=== PATIENT | male | born 1970 | race Caucasian/White ===

== ENCOUNTER → 2017-08-10 | Outpatient (CLI) | payer BC ==
[~2017-08-10] MED LIST: ASPIRIN CHILDRE81 MG PO; ASPIRIN324 MG PO; BACITRACIN 500U30 GM OPH; CHOLESTEROL MED; FLEXERIL10 MG PO; HYDROCODONE BIT1 T11 PO; LIPITOR10 MG; LIPITOR20 MG PO; LISINOPRIL2.5 MG PO; LOPRESSOR25 MG PO; PLAVIX75 MG PO; PRAVACHOL40 MG PO; PREVACID30 MG PO; PRILOSEC20 M1 PO; PRINIVIL2.5 MG PO; TOPROL XL100 MG PO; TOPROL XL25 MG; VICODIN 500 MG-1 TAB PO; ZITHROMAX Z PA250 MG PO; ZOCOR20 MG PO
[2017-08-10 08:08] LABS: CHOLESTEROL 96 mg/dL (<200); HDL CHOLESTEROL 28 mg/dl (40-60); LDL CHOLESTEROL 55 mg/dL (9-159); SGOT/AST 30 IU/L (3-35); SGPT/ALT 43 U/L (12-78); TRIGLYCERIDES 65 mg/dl (<150); VLDL CHOLESTEROL 13 mg/dL (6-40)
[2017-08-13 00:07] LABS: TESTOSTERONE FREE, (DIRECT) 31.6 pg/mL (6.8-21.5)
== END | disposition home or self-care (01) ==
LOC: LAB 06:55
PROVIDERS: Internal Medicine Interventional Cardiology
DX: E78.2 Mixed hyperlipidemia (principal); E29.1 Testicular hypofunction

== ENCOUNTER → 2017-11-04 | Outpatient (CLI) | payer BC | END | disposition home or self-care (01) | LOC: US 13:21 | DX: N50.3 Cyst of epididymis (principal); N43.2 Other hydrocele ==

== ENCOUNTER → 2018-07-21 | Outpatient (CLI) | payer BC ==
[2018-07-21 09:42] LABS: BUN 18 mg/dl (7-24); CHLORIDE 102 mmol/L (98-107); CHOLESTEROL 127 mg/dL (<200); HDL CHOLESTEROL 26 mg/dl (40-60); LDL CHOLESTEROL 73 mg/dL (9-159); POTASSIUM 4.1 mmol/L (3.5-5.1); SGOT/AST 63 IU/L (3-35); SGPT/ALT 94 U/L (12-78); SODIUM 138 mmol/L (136-145); TRIGLYCERIDES 139 mg/dl (<150); VLDL CHOLESTEROL 28 mg/dL (6-40)
== END | disposition home or self-care (01) ==
LOC: LAB 08:39
PROVIDERS: Internal Medicine Interventional Cardiology
DX: I25.10 Atherosclerotic heart disease of native coronary artery without angina pectoris (principal); I10 Essential (primary) hypertension; E78.5 Hyperlipidemia, unspecified; I25.2 Old myocardial infarction; Z95.5 Presence of coronary angioplasty implant and graft

== ENCOUNTER → 2018-10-31 | Outpatient (CLI) | payer BC ==
[2018-10-31 08:23] LABS: CHOLESTEROL 80 mg/dL (<200); HDL CHOLESTEROL 27 mg/dl (40-60); LDL CHOLESTEROL 34 mg/dL (9-159); SGOT/AST 37 IU/L (3-35); SGPT/ALT 53 U/L (12-78); TRIGLYCERIDES 95 mg/dl (<150); VLDL CHOLESTEROL 19 mg/dL (6-40)
== END | disposition home or self-care (01) ==
LOC: LAB 07:37
PROVIDERS: Internal Medicine Interventional Cardiology
DX: E78.2 Mixed hyperlipidemia (principal)

== ENCOUNTER → 2018-11-24 | Outpatient (CLI) | payer BC ==
--- NOTE | 2018-11-24 10:00 | NUR ---
INFORMED SIGNED CONSENT OBTAIND FOR STANDARD GXT WITH DR BURNS. RESTING EKG NSR HR 77 BP 130/70 IN SUPINE POSITON. STANDING HR 90 BP 122/62. PT COMPLETED 7:00 OF A LINDSAY PROTOCOL WITH PT COMPLETING STAGE ONE MINUTE OF STAGE III AT 3.4 MPH AND A 14% GRADE. MULTIFOCAL PVC'S AND BIGEMNY NOTED. PT REACHED A PEAK HR OF 152 WHICH REPRESENTS 89% OF PREDICTED MAXMIMUM AND A PEAK BP OF 158/70. PT DENIES ANY CHEST PAIN. TEST TERMINATED DUE TO FATIGUE AND SOB. LAST RECOVERY HR OF 92 BP 134/64. PT IN STABLE CONDITION, HOME TO SELF.
== END | disposition home or self-care (01) ==
LOC: CARD 02:12
DX: I25.10 Atherosclerotic heart disease of native coronary artery without angina pectoris (principal)

== ENCOUNTER → 2019-06-20 | Outpatient (CLI) | payer BC ==
[2019-06-20 09:41] LABS: BASO # 0.1 10*3/uL (0.0-0.1); BASO % 0.9 % (0.0-1.0); EOS # 0.2 10*3/uL (0.0-0.4); EOS % 2.5 % (1.0-4.0); HEMATOCRIT 45.2 % (42.0-52.0); HEMOGLOBIN 15.4 g/dl (14.0-18.0); LYMPH # 3.4 10*3/uL (1.3-4.4); LYMPH % 35.3 % (27.0-41.0); MEAN CELL VOLUME 92.6 fl (80.0-94.0); MEAN CORPUSCULAR HGB 31.6 pg (27.0-31.0); MEAN CORPUSCULAR HGB CONC 34.1 g/dl (33.0-37.0); MONO # 0.8 10*3/uL (0.1-1.0); MONO % 8.3 % (3.0-9.0); NEUT # 5.1 10*3/uL (2.3-7.9); NEUT % 52.5 % (47.0-73.0); PLATELET COUNT AUTOMATED 238 10*3/uL (130-400); RED BLOOD COUNT 4.88 10*6/uL (4.50-5.90); WHITE BLOOD COUNT 9.6 10*3/uL (4.8-10.8)
[2019-06-20 10:03] LABS: ALBUMIN 4.1 gm/dl (3.1-4.5); ALKALINE PHOSPHATASE 79 U/L (45-117); BUN 21 mg/dl (7-24); CHLORIDE 106 mmol/L (98-107); CHOLESTEROL 114 mg/dL (<200); CREATININE 0.99 mg/dL (0.70-1.30); FREE T4 0.88 ng/dl (0.76-1.46); HDL CHOLESTEROL 33 mg/dl (40-60); LDL CHOLESTEROL 54 mg/dL (9-159); POTASSIUM 3.9 mmol/L (3.5-5.1); SGOT/AST 32 IU/L (3-35); SGPT/ALT 66 U/L (12-78); SODIUM 140 mmol/L (136-145); TOTAL PROTEIN 7.5 gm/dL (6.4-8.2); TRIGLYCERIDES 133 mg/dl (<150); VLDL CHOLESTEROL 27 mg/dL (6-40)
== END | disposition home or self-care (01) ==
LOC: LAB 09:12
PROVIDERS: Internal Medicine
DX: M17.0 Bilateral primary osteoarthritis of knee (principal); E78.5 Hyperlipidemia, unspecified; I10 Essential (primary) hypertension; M25.461 Effusion, right knee; M25.762 Osteophyte, left knee; M25.761 Osteophyte, right knee

== ENCOUNTER → 2019-08-18 | Outpatient (CLI) | payer BC | END | disposition home or self-care (01) | LOC: RAD 13:53 | DX: M17.11 Unilateral primary osteoarthritis, right knee (principal) ==

== ENCOUNTER → 2019-11-10 | Outpatient (CLI) | payer BC | END | disposition home or self-care (01) | LOC: ORTHO 00:54 | DX: M17.0 Bilateral primary osteoarthritis of knee (principal); M25.461 Effusion, right knee; M25.462 Effusion, left knee ==

== ENCOUNTER → 2020-12-05 | Outpatient (CLI) | payer BC ==
[~2020-12-05] MED LIST changes: +LISINOPRIL10 M1 PO; -LOPRESSOR25 MG PO; +LOPRESSOR50 M1 PO; +Motrin,Rufen800 MG PO; +NORCO PO; -PRINIVIL2.5 MG PO; +VITAMIN D3125 MC1 PO; +VITAMIN E400 UNI3 PO
== END | disposition home or self-care (01) ==
LOC: CARD 00:12
PROVIDERS: ATTEND Internal Medicine
DX: Z95.5 Presence of coronary angioplasty implant and graft (principal)

== ENCOUNTER → 2021-03-24 | Outpatient (CLI) | payer BC ==
[2021-03-24 09:21] LABS: BASO # 0.1 10*3/uL (0.0-0.1); BASO % 0.7 % (0.0-1.0); EOS # 0.2 10*3/uL (0.0-0.4); EOS % 3.3 % (1.0-4.0); HEMATOCRIT 43.5 % (42.0-52.0); LYMPH % 43.2 % (27.0-41.0); MEAN CELL VOLUME 89.3 fl (80.0-94.0); MEAN CORPUSCULAR HGB 30.4 pg (27.0-31.0); MEAN PLATELET VOLUME 10.6 fl (9.6-12.3); MONO # 0.6 10*3/uL (0.1-1.0); MONO % 8.2 % (3.0-9.0); NEUT # 3.1 10*3/uL (2.3-7.9); PLATELET COUNT AUTOMATED 227 10*3/uL (130-400); RED BLOOD COUNT 4.87 10*6/uL (4.50-5.90); RED CELL DISTRI WIDTH 12.9 % (0-14.5)
[2021-03-24 09:43] LABS: ALBUMIN 3.6 gm/dl (3.1-4.5); BUN 18 mg/dl (7-24); CHLORIDE 108 mmol/L (98-107); CHOLESTEROL 114 mg/dL (<200); CREATININE 0.93 mg/dL (0.70-1.30); LDL CHOLESTEROL 55 mg/dL (9-159); POTASSIUM 3.8 mmol/L (3.5-5.1); SGOT/AST 34 IU/L (3-35); SGPT/ALT 73 U/L (12-78); SODIUM 140 mmol/L (136-145); TOTAL PROTEIN 7.3 gm/dL (6.4-8.2); TRIGLYCERIDES 164 mg/dl (<150)
[2021-03-24 09:49] LABS: ALKALINE PHOSPHATASE 91 U/L (45-117); FREE T4 0.84 ng/dl (0.76-1.46)
== END | disposition home or self-care (01) ==
LOC: LAB 08:56
PROVIDERS: ATTEND Internal Medicine
DX: M77.31 Calcaneal spur, right foot (principal); I10 Essential (primary) hypertension; M79.81 Nontraumatic hematoma of soft tissue

== ENCOUNTER 2021-09-02 13:39 | Emergency (ER) | payer BC ==
[~2021-09-02] VITALS: Ht 175.2 cm; Wt 147.0 kg
== END 2021-09-02 17:49 | disposition home or self-care (01) ==
LOC: ED 13:39
DX: U07.1 COVID-19 (principal); J12.82 Pneumonia due to coronavirus disease 2019; Z79.899 Other long term (current) drug therapy; Z79.82 Long term (current) use of aspirin

== ENCOUNTER → 2021-10-30 | Outpatient (CLI) | payer BC | END | disposition home or self-care (01) | LOC: US 07:30 | PROVIDERS: ATTEND Internal Medicine | DX: K76.0 Fatty (change of) liver, not elsewhere classified (principal); R10.9 Unspecified abdominal pain; Z87.442 Personal history of urinary calculi ==

== ENCOUNTER → 2021-12-31 | Outpatient (CLI) | payer BC ==
[2021-12-31 08:59] LABS: BASO # 0.1 10*3/uL (0.0-0.1); BASO % 0.6 % (0.0-1.0); EOS # 0.2 10*3/uL (0.0-0.4); EOS % 2.2 % (1.0-4.0); HEMATOCRIT 44.6 % (42.0-52.0); LYMPH # 3.3 10*3/uL (1.3-4.4); LYMPH % 38.6 % (27.0-41.0); MEAN CORPUSCULAR HGB 30.4 pg (27.0-31.0); MEAN CORPUSCULAR HGB CONC 33.4 g/dl (33.0-37.0); MEAN PLATELET VOLUME 10.1 fl (9.6-12.3); MONO # 0.6 10*3/uL (0.1-1.0); MONO % 6.5 % (3.0-9.0); NEUT # 4.4 10*3/uL (2.3-7.9); NEUT % 51.6 % (47.0-73.0); PLATELET COUNT AUTOMATED 246 10*3/uL (130-400); RED CELL DISTRI WIDTH 12.6 % (0-14.5); WHITE BLOOD COUNT 8.5 10*3/uL (4.8-10.8)
[2021-12-31 09:17] LABS: ALKALINE PHOSPHATASE 112 U/L (45-117); BUN 18 mg/dl (7-24); CHLORIDE 105 mmol/L (98-107); CHOLESTEROL 121 mg/dL (<200); CREATININE 0.92 mg/dL (0.70-1.30); FREE T4 0.98 ng/dl (0.76-1.46); LDL CHOLESTEROL 59 mg/dL (9-159); POTASSIUM 4.4 mmol/L (3.5-5.1); SGOT/AST 29 IU/L (3-35); SGPT/ALT 72 U/L (12-78); SODIUM 140 mmol/L (136-145); TOTAL PROTEIN 7.2 gm/dL (6.4-8.2); TRIGLYCERIDES 143 mg/dl (<150)
[2022-01-02 11:08] LABS: TESTOSTERONE FREE, (DIRECT) 3.3 pg/mL (7.2-24.0)
[2022-01-06 14:06] LABS: FREE PSA 0.206 ng/mL (.)
== END | disposition home or self-care (01) ==
LOC: LAB 08:43
PROVIDERS: ATTEND Internal Medicine
DX: Z12.5 Encounter for screening for malignant neoplasm of prostate (principal); I10 Essential (primary) hypertension; E78.5 Hyperlipidemia, unspecified; E55.9 Vitamin D deficiency, unspecified

== ENCOUNTER → 2022-05-30 | Outpatient (CLI) | payer BC ==
[2022-05-30 15:12] LABS: BUN 11 mg/dl (7-24); CHLORIDE 107 mmol/L (98-107); CREATININE 0.97 mg/dL (0.70-1.30); POTASSIUM 3.7 mmol/L (3.5-5.1); SODIUM 139 mmol/L (136-145)
== END | disposition home or self-care (01) ==
LOC: LAB 14:44
PROVIDERS: ATTEND Internal Medicine
DX: U07.1 COVID-19 (principal)

== ENCOUNTER → 2022-11-27 | Outpatient (CLI) | payer BC ==
[~2022-11-27] MED LIST changes: +FISH OIL 1,2001 EACH PO; +GALZIN50 MG PO; +JARDIANCE25 MG PO; +METFORMIN XR500 MG PO; +TRULICITY4.5 MG/0.5 SQ
[2022-11-27 09:04] LABS: BASO # 0.1 10*3/uL (0.0-0.1); BASO % 0.7 % (0.0-1.0); EOS # 0.2 10*3/uL (0.0-0.4); EOS % 2.5 % (1.0-4.0); HEMATOCRIT 51.3 % (42.0-52.0); LYMPH # 2.7 10*3/uL (1.3-4.4); LYMPH % 31.1 % (27.0-41.0); MEAN CORPUSCULAR HGB 29.3 pg (27.0-31.0); MEAN CORPUSCULAR HGB CONC 33.3 g/dl (33.0-37.0); MEAN PLATELET VOLUME 9.8 fl (9.6-12.3); MONO # 0.6 10*3/uL (0.1-1.0); MONO % 7.3 % (3.0-9.0); NEUT # 5.1 10*3/uL (2.3-7.9); NEUT % 58.2 % (47.0-73.0); PLATELET COUNT AUTOMATED 316 10*3/uL (130-400); RED BLOOD COUNT 5.83 10*6/uL (4.50-5.90); RED CELL DISTRI WIDTH 13.4 % (0-14.5); WHITE BLOOD COUNT 8.7 10*3/uL (4.8-10.8)
[2022-11-27 09:57] LABS: ALKALINE PHOSPHATASE 80 U/L (46-116); BUN 12 mg/dl (9-23); CHLORIDE 105 mmol/L (98-107); CHOLESTEROL 83 mg/dL (<200); FREE T4 1.08 ng/dl (0.89-1.76); LDL CHOLESTEROL 38 mg/dL (9-159); POTASSIUM 4.2 mmol/L (3.4-5.1); SGPT/ALT 93 U/L (10-49); THYROID STIM HORMONE (HS) 1.725 uIU/ml (0.550-4.780); TOTAL PROTEIN 7.5 gm/dL (6.0-8.0); TRIGLYCERIDES 77 mg/dl (<150)
[2022-12-03 01:06] LABS: TESTOSTERONE FREE, (DIRECT) 2.1 pg/mL (7.2-24.0)
== END | disposition home or self-care (01) ==
LOC: CARD 01:43 → LAB 01:43 → CARD 13:00
PROVIDERS: ATTEND Internal Medicine
DX: I25.10 Atherosclerotic heart disease of native coronary artery without angina pectoris (principal); E11.69 Type 2 diabetes mellitus with other specified complication; K76.0 Fatty (change of) liver, not elsewhere classified; E78.2 Mixed hyperlipidemia; E55.9 Vitamin D deficiency, unspecified

== ENCOUNTER → 2024-04-03 | Outpatient (CLI) | payer BC ==
[2024-04-03 08:42] LABS: BASO # 0.1 10*3/uL (0.0-0.1); BASO % 0.9 % (0.0-1.0); EOS # 0.2 10*3/uL (0.0-0.4); HEMATOCRIT 48.9 % (42.0-52.0); LYMPH # 2.9 10*3/uL (1.3-4.4); LYMPH % 38.2 % (27.0-41.0); MEAN CELL VOLUME 89.9 fl (80.0-94.0); MEAN CORPUSCULAR HGB 29.2 pg (27.0-31.0); MEAN CORPUSCULAR HGB CONC 32.5 g/dl (33.0-37.0); MONO # 0.6 10*3/uL (0.1-1.0); MONO % 8.3 % (3.0-9.0); NEUT # 3.8 10*3/uL (2.3-7.9); NEUT % 49.2 % (47.0-73.0); PLATELET COUNT AUTOMATED 241 10*3/uL (130-400); RED BLOOD COUNT 5.44 10*6/uL (4.50-5.90); RED CELL DISTRI WIDTH 14.6 % (0-14.5); WHITE BLOOD COUNT 7.7 10*3/uL (4.8-10.8)
[2024-04-03 09:46] LABS: ALKALINE PHOSPHATASE 86 U/L (46-116); BUN 8 mg/dl (9-23); CHLORIDE 105 mmol/L (98-107); CHOLESTEROL 81 mg/dL (<200); FREE T4 0.82 ng/dl (0.89-1.76); LDL CHOLESTEROL 26 mg/dL (9-159); POTASSIUM 3.8 mmol/L (3.4-5.1); SGPT/ALT 53 U/L (5-49); TRIGLYCERIDES 164 mg/dl (<150)
== END | disposition home or self-care (01) ==
LOC: LAB 08:22
PROVIDERS: ATTEND Internal Medicine
DX: Z12.5 Encounter for screening for malignant neoplasm of prostate (principal); E78.2 Mixed hyperlipidemia; E11.9 Type 2 diabetes mellitus without complications; I10 Essential (primary) hypertension; I25.10 Atherosclerotic heart disease of native coronary artery without angina pectoris

== ENCOUNTER → 2024-11-01 | Outpatient (CLI) | payer BC | END | disposition home or self-care (01) | LOC: LAB 12:23 | PROVIDERS: ATTEND Internal Medicine Nephrology | DX: B34.9 Viral infection, unspecified (principal); Z20.822 Contact with and (suspected) exposure to COVID-19 ==

== ENCOUNTER 2024-11-08 11:42 | Emergency (ER) | payer BC ==
[~2024-11-08] VITALS: Ht 175.2 cm; Wt 148.8 kg
[~2024-11-08 11:42] MED LIST changes: +LIPITOR40 MG PO; -LISINOPRIL10 M1 PO; +ZESTRIL10 MG PO
[2024-11-08] MEDS ORDERED: SODIUM CHLORIDE 0.9% 500 ML IV ONE (12:40)
[2024-11-08] MEDS ORDERED: IOHEXOL 300 MG/ML 100 ML VIAL IV ONE (12:45)
[2024-11-08 12:55] LABS: BASO # 0.1 10*3/uL (0.0-0.1); BASO % 0.9 % (0.0-1.0); EOS # 0.3 10*3/uL (0.0-0.4); EOS % 2.7 % (1.0-4.0); HEMATOCRIT 53.1 % (42.0-52.0); MEAN CELL VOLUME 86.9 fl (80.0-94.0); MEAN CORPUSCULAR HGB 28.3 pg (27.0-31.0); MEAN CORPUSCULAR HGB CONC 32.6 g/dl (33.0-37.0); MEAN PLATELET VOLUME 9.8 fl (9.6-12.3); MONO # 0.7 10*3/uL (0.1-1.0); MONO % 7.9 % (3.0-9.0); NEUT # 5.1 10*3/uL (2.3-7.9); NEUT % 56.1 % (47.0-73.0); PLATELET COUNT AUTOMATED 272 10*3/uL (130-400); RED BLOOD COUNT 6.11 10*6/uL (4.50-5.90); RED CELL DISTRI WIDTH 15.1 % (0-14.5); WHITE BLOOD COUNT 9.2 10*3/uL (4.8-10.8)
[2024-11-08 13:10] LABS: BUN 15 mg/dl (9-23); CHLORIDE 101 mmol/L (98-107); POTASSIUM 4.2 mmol/L (3.4-5.1)
[2024-11-08] MEDS ORDERED: AMOX-CLAV 875-1 EACH PO (16:33)
[2024-11-10] MEDS ORDERED: MONJARO SC (11:39)
[2024-11-10] MEDS ORDERED: ACTOS30 M1 PO (11:39)
[2024-11-10] MEDS ORDERED: CLARITIN-D 121 EACH PO (11:40)
[2024-11-10] MEDS ORDERED: DEPO TESTOS200 MG/ML IM (11:40)
== END 2024-11-08 16:39 | disposition home or self-care (01) ==
LOC: ED 11:42
PROVIDERS: Internal Medicine
DX: K11.20 Sialoadenitis, unspecified (principal); I10 Essential (primary) hypertension; I25.2 Old myocardial infarction; K21.9 Gastro-esophageal reflux disease without esophagitis; E11.9 Type 2 diabetes mellitus without complications; Z87.891 Personal history of nicotine dependence; Z95.5 Presence of coronary angioplasty implant and graft; Z90.49 Acquired absence of other specified parts of digestive tract; Z79.899 Other long term (current) drug therapy; Z79.82 Long term (current) use of aspirin; Z79.84 Long term (current) use of oral hypoglycemic drugs

== ENCOUNTER → 2024-11-10 | Outpatient (CLI) | payer BC ==
[~2024-11-10] MED LIST changes: +ACTOS30 M1 PO; +AMOX-CLAV 875-1 EACH PO; +CLARITIN-D 121 EACH PO; +DEPO TESTOS200 MG/ML IM; +MONJARO SC; +Regadenoson 0.4 MG/5 ML SYR IV ONE; +Technetium Tc 99M Tetrofosmi 0.23 MG KIT IJ SCH
== END | disposition home or self-care (01) ==
LOC: CARD 01:26
PROVIDERS: ATTEND Internal Medicine
DX: Z95.5 Presence of coronary angioplasty implant and graft (principal)

== ENCOUNTER → 2025-04-11 | Outpatient (CLI) | payer BC ==
[~2025-04-11] MED LIST changes: -Regadenoson 0.4 MG/5 ML SYR IV ONE; -Technetium Tc 99M Tetrofosmi 0.23 MG KIT IJ SCH
[2025-04-11 08:00] LABS: BASO # 0.1 10*3/uL (0.0-0.1); BASO % 0.8 % (0.0-1.0); EOS # 0.2 10*3/uL (0.0-0.4); EOS % 3.2 % (1.0-4.0); MEAN CELL VOLUME 88.7 fl (80.0-94.0); MEAN CORPUSCULAR HGB 28.9 pg (27.0-31.0); MEAN PLATELET VOLUME 10.6 fl (9.6-12.3); MONO # 0.8 10*3/uL (0.1-1.0); MONO % 11.4 % (3.0-9.0); NEUT # 3.6 10*3/uL (2.3-7.9); NEUT % 54.6 % (47.0-73.0); NUCLEATED RED BLOOD CELL 0.0 % (0.0-0.0); NUCLEATED RED BLOOD CELL 0.0 10*3/uL (0.0-0.0); PLATELET COUNT AUTOMATED 221 10*3/uL (130-400); RED CELL DISTRI WIDTH 15.4 % (0-14.5)
[2025-04-11 08:25] LABS: BUN 20 mg/dl (9-23); FREE T4 1.04 ng/dl (0.89-1.76); LDL CHOLESTEROL 38 mg/dL (9-159); SGPT/ALT 40 U/L (5-49)
[2025-04-11 08:44] LABS: VITAMIN D, 25-HYDROXY 73.1 ng/mL (30-100)
== END | disposition home or self-care (01) ==
LOC: LAB 07:40
PROVIDERS: ATTEND Internal Medicine
DX: I10 Essential (primary) hypertension (principal); E11.69 Type 2 diabetes mellitus with other specified complication

== ENCOUNTER → 2025-05-19 | Outpatient (CLI) | payer BC | END | disposition home or self-care (01) | LOC: RAD 17:33 | PROVIDERS: ATTEND Internal Medicine | DX: M19.072 Primary osteoarthritis, left ankle and foot (principal); M77.32 Calcaneal spur, left foot ==